=== PATIENT | female | born 1935 | race Caucasian/White ===

== ENCOUNTER 2017-12-23 09:38 | Inpatient (IN) | payer OTHER ==
[~2017-12-23] VITALS: Ht 160 cm; Wt 65.8 kg
[2017-12-23] MEDS ORDERED: SODIUM CHLORIDE 0.9% 1,000 ML IV ONE ×2 (09:49→14:15)
[2017-12-23 10:24] LABS: Basophils # (auto) 0 uL; Basophils % (auto) 0.2 % (0.0-2.0); Eosinophils # (auto) 0 uL; Eosinophils % (auto) 0.1 % (0.0-7.0); Hematocrit 41.2 % (36.0-46.0); Hemoglobin 13.8 g/dL (12.2-16.2); Lymphocytes # (auto) 0.7 uL; Lymphocytes % (auto) 10.3 % (10.0-50.0); Mean Corpuscular Hgb Conc. 33.6 g/dL (32.0-36.0); Mean Corpuscular Volume 95.4 fL (80.0-100.0); Monocytes # (auto) 0.3 uL; Monocytes % (auto) 4.3 % (0.0-12.0); Neutrophils # (auto) 5.5 uL; Neutrophils % (auto) 85.1 % (37.0-80.0); Platelet Count (auto) 165 10^3/uL (140-450); Red Blood Cells 4.32 10^6/uL (4.0-5.20); Red Cell Distribution Width 14.1 % (11.8-14.3); White Blood Cell 6.4 10^3/uL (4.4-10.8)
[2017-12-23 10:40] LABS: INR 0.99 (0.9-1.15); Partial Thromboplastin Time 25.7 sec (23.78-33.04); Prothrombin Time 10.6 sec (9.27-12.13)
[2017-12-23 10:42] LABS: Alanine Aminotransferase 15 U/L (13-56); Albumin 3.8 g/dL (3.4-5.0); Anion Gap 11 (5-15); Aspartate Aminotransferase 13 U/L (15-37); BUN/Creatinine Ratio 36.2; Blood Urea Nitrogen 25 mg/dL (7-18); Calcium 8.8 mg/dL (8.5-10.1); Carbon Dioxide 25 mmol/L (21-32); Chloride 103 mmol/L (98-107); GFR African American 105 mL/min; GFR Non-African American 87 mL/min; Glucose 166 mg/dL (74-106); Magnesium 1.9 mg/dL (1.6-2.6); Potassium 3.7 mmol/L (3.5-5.1); Sodium 139 mmol/L (136-145)
[2017-12-23 10:47] LABS: Alkaline Phosphatase 34 U/L (45-117); Bilirubin, Total 0.6 mg/dL (0.2-1.0); Total Protein 6.8 g/dL (6.4-8.2)
[2017-12-23 11:53] LABS: Urine Bacteria MOD /hpf (None Seen); Urine Blood Negative /uL (Negative); Urine Specific Gravity 1.013 (1.001-1.035); Urine WBC 17 /hpf (0 - 5)
[2017-12-23] MEDS ORDERED: cefTRIAXone 1GM/50ML D5W 50 ML IV ONE (12:30)
[2017-12-23] MEDS ORDERED: DEXTROSE (50%) 50ML SYRG IV PRN (14:15)
[2017-12-23] MEDS ORDERED: ACETAMINOPHEN 500 MG TAB PO PRN (14:15)
[2017-12-23] MEDS ORDERED: NITROGLYCERIN 0.4 MG SL TAB SL PRN (14:15)
[2017-12-23] MEDS ORDERED: MORPHINE SULFATE 4 MG/ML SYR/VIAL IV PRN (14:15)
[2017-12-23] MEDS: ACCU-CHEK COMFORT CURVE STRIP VI SCH ×2 (17:57→23:29)
[2017-12-23] MEDS: InsuLIN REG 1unit/0.01ml Soln (100units/ml) SC SCH ×2 (17:59→23:30)
[2017-12-23 20:10] VITALS: BP 116/64
[2017-12-23 21:01] VITALS: BP 116/64
[2017-12-24 04:30] VITALS: BP 124/54
[2017-12-24] MEDS: ACCU-CHEK COMFORT CURVE STRIP VI SCH ×4 (05:34→23:35)
[2017-12-24] MEDS: InsuLIN REG 1unit/0.01ml Soln (100units/ml) SC SCH ×4 (05:35→23:35)
[2017-12-24 06:40] LABS: Basophils # (auto) 0 uL; Basophils % (auto) 0.6 % (0.0-2.0); Eosinophils # (auto) 0 uL; Eosinophils % (auto) 0.5 % (0.0-7.0); Hematocrit 35.7 % (36.0-46.0); Hemoglobin 12.1 g/dL (12.2-16.2); Lymphocytes # (auto) 1.5 uL; Lymphocytes % (auto) 22.4 % (10.0-50.0); Mean Corpuscular Hemoglobin 32.9 pg (28.0-32.0); Mean Corpuscular Volume 96.7 fL (80.0-100.0); Monocytes # (auto) 0.9 uL; Monocytes % (auto) 13.5 % (0.0-12.0); Neutrophils # (auto) 4.1 uL; Nucleated Red Blood Cells % 0.1 %; Platelet Count (auto) 138 10^3/uL (140-450); Red Blood Cells 3.69 10^6/uL (4.0-5.20); Red Cell Distribution Width 13.9 % (11.8-14.3); White Blood Cell 6.6 10^3/uL (4.4-10.8)
[2017-12-24 07:00] LABS: Potassium 4.1 mmol/L (3.5-5.1)
[2017-12-24 07:06] LABS: Calcium 8.3 mg/dL (8.5-10.1)
[2017-12-24 08:00] VITALS: BP 110/62
[2017-12-24] MEDS: cefTRIAXone 1GM/50ML D5W 50 ML IV SCH (09:04)
[2017-12-24] MEDS ORDERED: CALC600T57 PO (09:48)
[2017-12-24] MEDS ORDERED: CITA-77 PO (09:48)
[2017-12-24] MEDS ORDERED: ALEN1TAB32 PO (09:48)
[2017-12-24] MEDS ORDERED: MELO1TAB73 PO (09:48)
[2017-12-24] MEDS ORDERED: CHOL20007 PO (09:48)
[2017-12-24] MEDS ORDERED: LOVA40TA72 PO (09:48)
[2017-12-24] MEDS ORDERED: GINK60CA PO (09:48)
[2017-12-24] MEDS ORDERED: LEVO100T8 PO (09:48)
[2017-12-24] MEDS ORDERED: FAMO-12 PO (09:48)
[2017-12-24] MEDS ORDERED: LORA-35 PO (09:48)
[2017-12-24] MEDS ORDERED: CINN500C7 PO (09:48)
[2017-12-24] MEDS ORDERED: B COTAB OR (09:48)
[2017-12-24] MEDS ORDERED: METF-371 PO (09:48)
[2017-12-24] MEDS ORDERED: ASPI81CH43 PO (09:48)
[2017-12-24 12:00] VITALS: BP 117/64
[2017-12-24] MEDS ORDERED: LEVOTHYROXINE SODIUM 100 MCG TAB PO ONE (12:30)
[2017-12-24 16:57] VITALS: BP 119/65
[2017-12-24] MEDS: metFORMIN HYDROCHLORIDE 500 MG TAB PO SCH (17:52)
[2017-12-24 22:26] VITALS: BP 134/75
[2017-12-25 04:51] VITALS: BP 142/65
[2017-12-25] MEDS: InsuLIN REG 1unit/0.01ml Soln (100units/ml) SC SCH ×4 (06:28→23:46)
[2017-12-25] MEDS: ACCU-CHEK COMFORT CURVE STRIP VI SCH ×5 (06:28→23:45)
[2017-12-25] MEDS: LEVOTHYROXINE SODIUM 100 MCG TAB PO SCH (06:28)
[2017-12-25 06:29] LABS: Basophils # (auto) 0 uL; Basophils % (auto) 0.3 % (0.0-2.0); Eosinophils # (auto) 0.1 uL; Eosinophils % (auto) 1.5 % (0.0-7.0); Hematocrit 38.8 % (36.0-46.0); Lymphocytes # (auto) 1.4 uL; Lymphocytes % (auto) 20.2 % (10.0-50.0); Mean Corpuscular Hemoglobin 32.1 pg (28.0-32.0); Mean Corpuscular Hgb Conc. 33.4 g/dL (32.0-36.0); Mean Corpuscular Volume 96.2 fL (80.0-100.0); Monocytes # (auto) 0.9 uL; Monocytes % (auto) 13.1 % (0.0-12.0); Neutrophils # (auto) 4.6 uL; Neutrophils % (auto) 64.9 % (37.0-80.0); Nucleated Red Blood Cells % 0.1 %; Platelet Count (auto) 147 10^3/uL (140-450); Red Blood Cells 4.04 10^6/uL (4.0-5.20); Red Cell Distribution Width 13.8 % (11.8-14.3); White Blood Cell 7.1 10^3/uL (4.4-10.8)
[2017-12-25 06:44] LABS: Calcium 8.5 mg/dL (8.5-10.1); Potassium 4.2 mmol/L (3.5-5.1)
[2017-12-25 08:00] VITALS: BP 128/65
[2017-12-25] MEDS: metFORMIN HYDROCHLORIDE 500 MG TAB PO SCH ×2 (08:17→17:54)
[2017-12-25] MEDS: cefTRIAXone 1GM/50ML D5W 50 ML IV SCH (08:18)
[2017-12-25 12:00] VITALS: BP 151/86
[2017-12-25 16:00] VITALS: BP 136/80
[2017-12-25 21:30] VITALS: BP 131/72
[2017-12-26] MEDS: InsuLIN REG 1unit/0.01ml Soln (100units/ml) SC SCH ×5 (05:05→23:55)
[2017-12-26] MEDS: ACCU-CHEK COMFORT CURVE STRIP VI SCH ×4 (05:06→23:47)
[2017-12-26 05:26] VITALS: BP 145/76
[2017-12-26] MEDS: LEVOTHYROXINE SODIUM 100 MCG TAB PO SCH (05:46)
[2017-12-26 06:07] LABS: Basophils # (auto) 0 uL; Basophils % (auto) 0.4 % (0.0-2.0); Eosinophils # (auto) 0.2 uL; Eosinophils % (auto) 2.4 % (0.0-7.0); Hematocrit 38.3 % (36.0-46.0); Lymphocytes # (auto) 1.7 uL; Lymphocytes % (auto) 24.7 % (10.0-50.0); Mean Corpuscular Hemoglobin 32.7 pg (28.0-32.0); Mean Corpuscular Hgb Conc. 33.9 g/dL (32.0-36.0); Mean Corpuscular Volume 96.6 fL (80.0-100.0); Monocytes % (auto) 14.2 % (0.0-12.0); Neutrophils # (auto) 4.1 uL; Neutrophils % (auto) 58.3 % (37.0-80.0); Nucleated Red Blood Cells % 0.1 %; Platelet Count (auto) 139 10^3/uL (140-450); Red Blood Cells 3.97 10^6/uL (4.0-5.20); Red Cell Distribution Width 13.8 % (11.8-14.3); White Blood Cell 7.1 10^3/uL (4.4-10.8)
[2017-12-26 06:42] LABS: Potassium 4.2 mmol/L (3.5-5.1)
[2017-12-26 06:46] LABS: Calcium 8.2 mg/dL (8.5-10.1)
[2017-12-26] MEDS: cefTRIAXone 1GM/50ML D5W 50 ML IV SCH (08:14)
[2017-12-26] MEDS: metFORMIN HYDROCHLORIDE 500 MG TAB PO SCH ×2 (08:14→17:24)
[2017-12-26 22:00] VITALS: BP 140/76
[2017-12-27 05:00] VITALS: BP 146/85
[2017-12-27] MEDS: ACCU-CHEK COMFORT CURVE STRIP VI SCH ×2 (05:47→12:47)
[2017-12-27] MEDS: LEVOTHYROXINE SODIUM 100 MCG TAB PO SCH (05:47)
[2017-12-27] MEDS: InsuLIN REG 1unit/0.01ml Soln (100units/ml) SC SCH ×2 (05:47→12:48)
[2017-12-27 08:39] VITALS: BP 137/80
[2017-12-27] MEDS: cefTRIAXone 1GM/50ML D5W 50 ML IV SCH (08:45)
[2017-12-27] MEDS: metFORMIN HYDROCHLORIDE 500 MG TAB PO SCH (08:45)
[2017-12-27 12:53] VITALS: BP 126/71
[2017-12-27 13:00] VITALS: BP 126/71
== END 2017-12-27 15:00 | disposition home or self-care (01) | DRG 871 ==
LOC: ER 09:46 → TELE 14:15 → TELE-WESTW 20:02 → WEST WING 12-24 14:22
PROVIDERS: ADMIT Internal Medicine; ATTEND Internal Medicine
DX: A41.9 Sepsis, unspecified organism (principal); G92 Toxic encephalopathy; I50.42 Chronic combined systolic (congestive) and diastolic (congestive) heart failure; N39.0 Urinary tract infection, site not specified; L03.116 Cellulitis of left lower limb; E11.9 Type 2 diabetes mellitus without complications; F03.90 Unspecified dementia, unspecified severity, without behavioral disturbance, psychotic disturbance, mood disturbance, and anxiety; B96.1 Klebsiella pneumoniae [K. pneumoniae] as the cause of diseases classified elsewhere; E03.9 Hypothyroidism, unspecified; E78.5 Hyperlipidemia, unspecified; I70.8 Atherosclerosis of other arteries; Z88.2 Allergy status to sulfonamides
CPT/HCPCS: 36415; 70450; 71045; 74176; 80048; 80053; 81001; 82607; 82962; 83036; 83605; 83735; 84443; 84484; 85025; 85610; 85730; 87040; 87086; 87088; 87186; 93005; 93306; 96361; 96365; 97116; 97163; 97530; G0378; J0696; J1815

== ENCOUNTER 2018-10-30 11:37 | Emergency (ER) | payer OTHER ==
[~2018-10-30] VITALS: Ht 162.6 cm; Wt 59.0 kg
[~2018-10-30 11:37] MED LIST: ALEN1TAB32 PO; ASPI81CH43 PO; B COTAB OR; CALC600T57 PO; CHOL20007 PO; CINN500C7 PO; CITA-77 PO; FAMO-12 PO; GINK60CA PO; LEVO100T8 PO; LORA-35 PO; LOVA40TA72 PO; MELO1TAB73 PO; METF-371 PO
[2018-10-30 12:37] LABS: Basophils # (auto) 0 uL; Basophils % (auto) 0.5 % (0.0-2.0); Eosinophils # (auto) 0 uL; Eosinophils % (auto) 0.4 % (0.0-7.0); Hematocrit 42.5 % (36.0-46.0); Hemoglobin 14.3 g/dL (12.2-16.2); Lymphocytes # (auto) 0.9 uL; Lymphocytes % (auto) 19.7 % (10.0-50.0); Mean Corpuscular Hemoglobin 32.3 pg (28.0-32.0); Mean Corpuscular Hgb Conc. 33.5 g/dL (32.0-36.0); Mean Corpuscular Volume 96.3 fL (80.0-100.0); Monocytes # (auto) 0.4 uL; Monocytes % (auto) 8.4 % (0.0-12.0); Neutrophils # (auto) 3.2 uL; Platelet Count (auto) 148 10^3/uL (140-450); Red Blood Cells 4.42 10^6/uL (4.0-5.20); Red Cell Distribution Width 13.5 % (11.8-14.3); White Blood Cell 4.6 10^3/uL (4.4-10.8)
[2018-10-30 12:46] LABS: INR 0.95 (0.9-1.15); Partial Thromboplastin Time 26.5 sec (23.64-32.05)
[2018-10-30 12:49] LABS: Alanine Aminotransferase 12 U/L (13-56); Albumin 3.6 g/dL (3.4-5.0); Anion Gap 5 (5-15); Aspartate Aminotransferase 11 U/L (15-37); BUN/Creatinine Ratio 23.5; Blood Urea Nitrogen 16 mg/dL (7-18); Calcium 9.2 mg/dL (8.5-10.1); Carbon Dioxide 31 mmol/L (21-32); Chloride 103 mmol/L (98-107); GFR African American 107 mL/min; GFR Non-African American 88 mL/min; Glucose 185 mg/dL (74-106); Potassium 4.5 mmol/L (3.5-5.1); Sodium 139 mmol/L (136-145)
[2018-10-30 12:54] LABS: Alkaline Phosphatase 33 U/L (45-117); Bilirubin, Total 0.4 mg/dL (0.2-1.0); Total Protein 6.3 g/dL (6.4-8.2)
[2018-10-30 14:03] LABS: Urine Bacteria NONE SEEN /hpf (None Seen); Urine Blood Negative /uL (Negative); Urine Specific Gravity 1.008 (1.001-1.035); Urine WBC 3 /hpf (0 - 5)
[2018-10-30 16:43] LABS: Alcohol, Urine < 3.0 mg/dL (0-5); Amphetamine Screen, Urine NEGATIVE (NEGATIVE); Barbiturate Scree,Urine NEGATIVE (NEGATIVE); Benzodiazephine Screen, Urine NEGATIVE (NEGATIVE); Cannabinoid Screen, Urine NEGATIVE (NEGATIVE); Cocaine Screen, Urine NEGATIVE (NEGATIVE); Opiate Scree,Urine NEGATIVE (NEGATIVE); Phencyclidine Screen, Urine NEGATIVE (NEGATIVE)
[2018-10-30 18:53] VITALS: BP 140/70
== END 2018-10-30 19:09 | disposition short-term general hospital (02) ==
LOC: ER 11:37 → EDBD 11:37 → ER 19:09
DX: G93.41 Metabolic encephalopathy (principal); R41.82 Altered mental status, unspecified; F03.90 Unspecified dementia, unspecified severity, without behavioral disturbance, psychotic disturbance, mood disturbance, and anxiety; I50.9 Heart failure, unspecified; E11.9 Type 2 diabetes mellitus without complications; Z86.39 Personal history of other endocrine, nutritional and metabolic disease; Z88.2 Allergy status to sulfonamides; Z79.899 Other long term (current) drug therapy
CPT/HCPCS: 36415; 70450; 71045; 80053; 80307; 81001; 82962; 84484; 85025; 85610; 85730; 93005

== ENCOUNTER 2019-02-15 15:20 | Emergency (ER) | payer OTHER ==
[~2019-02-15] VITALS: Ht 167.6 cm; Wt 63.5 kg
[2019-02-15 16:41] LABS: Basophils # (auto) 0 uL; Basophils % (auto) 0.6 % (0.0-2.0); Eosinophils # (auto) 0.1 uL; Eosinophils % (auto) 1.5 % (0.0-7.0); Hematocrit 43.4 % (36.0-46.0); Hemoglobin 14.9 g/dL (12.2-16.2); Lymphocytes # (auto) 1.4 uL; Lymphocytes % (auto) 32.3 % (10.0-50.0); Mean Corpuscular Hemoglobin 32.5 pg (28.0-32.0); Mean Corpuscular Hgb Conc. 34.4 g/dL (32.0-36.0); Mean Corpuscular Volume 94.5 fL (80.0-100.0); Monocytes # (auto) 0.5 uL; Monocytes % (auto) 11.1 % (0.0-12.0); Neutrophils # (auto) 2.3 uL; Neutrophils % (auto) 54.5 % (37.0-80.0); Platelet Count (auto) 158 10^3/uL (140-450); Red Cell Distribution Width 13.5 % (11.8-14.3); White Blood Cell 4.3 10^3/uL (4.4-10.8)
[2019-02-15 17:02] LABS: Alanine Aminotransferase 13 U/L (13-56); Albumin 3.1 g/dL (3.4-5.0); Aspartate Aminotransferase 13 U/L (15-37); BUN/Creatinine Ratio 27.1; Blood Urea Nitrogen 16 mg/dL (7-18); Calcium 9.1 mg/dL (8.5-10.1); Carbon Dioxide 26 mmol/L (21-32); GFR African American 125 mL/min; GFR Non-African American 104 mL/min; Glucose 145 mg/dL (74-106); Magnesium 1.9 mg/dL (1.6-2.6)
[2019-02-15 17:04] LABS: Anion Gap 8 (5-15); Bilirubin, Total 0.6 mg/dL (0.2-1.0); Chloride 106 mmol/L (98-107); Potassium 3.7 mmol/L (3.5-5.1); Sodium 140 mmol/L (136-145); Total Protein 6.1 g/dL (6.4-8.2)
[2019-02-15 17:07] LABS: Alkaline Phosphatase 36 U/L (45-117)
[2019-02-15 22:15] VITALS: BP 125/71
== END 2019-02-15 22:48 | disposition swing bed (61) ==
LOC: EDBD 15:20 → ER 15:31
DX: R56.9 Unspecified convulsions (principal); R41.82 Altered mental status, unspecified; R53.1 Weakness; I50.9 Heart failure, unspecified; E11.9 Type 2 diabetes mellitus without complications; E78.5 Hyperlipidemia, unspecified; E07.9 Disorder of thyroid, unspecified
CPT/HCPCS: 36415; 70450; 71045; 80053; 80164; 83735; 84484; 85025